=== PATIENT | female | born 1940 | race Caucasian/White ===

== ENCOUNTER 2022-01-20 12:48 | Emergency (ER) | payer MEDICARE, MEDICAID ==
[~2022-01-20] VITALS: Ht 167.6 cm; Wt 80.0 kg
[2022-01-20 13:31] LABS: BASOPHILS % (AUTO) 0.5 % (0-1); EOSINOPHILS # (AUTO) 0.1 X10'3 (0-0.9); EOSINOPHILS % (AUTO) 1.1 % (0-6); HEMATOCRIT 41.8 % (35.0-45.0); LYMPHOCYTES # (AUTO) 0.6 X10'3 (1.1-4.8); MEAN CORPUSCULAR HGB CONC 33.5 g/dL (33.0-36.5); MEAN CORPUSCULAR VOLUME 83.8 FL (78-98); MEAN PLATELET VOLUME 7.8 FL (7.4-10.4); MONOCYTES # (AUTO) 0.2 X10'3 (0-0.9); MONOCYTES % (AUTO) 2.9 % (2-12); NEUTROPHILS # (AUTO) 5.8 X10'3 (1.8-7.7); NEUTROPHILS % (AUTO) 86.5 % (42-75); PLATELET COUNT 139 X10'3 (140-440); RED BLOOD COUNT 4.99 X10'6 (4.20-5.60); RED CELL DISTRIBUTION WIDTH 14.6 % (11.5-14.5); WHITE BLOOD COUNT 6.8 X10'3 (4.5-11.0)
[2022-01-20 13:47] LABS: ALANINE AMINOTRANSFERASE 25 U/L (12-78); ALBUMIN 3.5 G/DL (3.4-5.0); ALBUMIN/GLOBULIN RATIO 1.1 (1.1-1.5); ALKALINE PHOSPHATASE 146 IU/L (46-116); ANION GAP 7 (8-16); ASPARTATE AMINO TRANSFERASE 18 U/L (10-37); BILIRUBIN,TOTAL 0.7 MG/DL (0.1-1.0); BLOOD UREA NITROGEN 23 MG/DL (7-18); BUN/CREATININE RATIO 20.5 (6.6-38.0); CALCIUM 9.2 MG/DL (8.5-10.1); CHLORIDE 104 MMOL/L (99-107); CREATININE 1.12 MG/DL (0.40-0.90); GLUCOSE 226 MG/DL (70-104); SODIUM 139 MMOL/L (135-145); TOTAL CARBON DIOXIDE 27.9 MMOL/L (24-32); TOTAL PROTEIN 6.6 G/DL (6.4-8.2); eGFR 47 ML/MIN
[2022-01-20 19:18] LABS: LIPASE 52 U/L (73-393)
--- NOTE | 2022-01-20 20:48 | NUR ---
GABRIEL HARO NOTIFIED OF BP 224/98. NO NEW ORDERS AT THIS TIME
--- NOTE | 2022-01-20 22:30 | NUR ---
PT TO CT
--- NOTE | 2022-01-20 22:40 | NUR ---
GABRIEL HARO AWARE OF ELEVATED BP AND AWARE THAT IV IS IN PLACE. NO NEW ORDERS AT THIS TIME
--- NOTE | 2022-01-20 22:47 | NUR ---
PT BACK FROM CT
--- NOTE | 2022-01-20 22:53 | NUR ---
GABRIEL HARO GAVE VERBAL ORDER FOR METOPROLOL 5MG IV ONCE
[2022-01-20] MEDS ORDERED: metoprolol tartrate 1mg/ml inj IV ONE ×2 (22:55→23:25)
[2022-01-21] MEDS ORDERED: hydrALAZINE 20mg/ml inj. IV ONE (00:05)
[2022-01-21] MEDS ORDERED: ondansetron/PF 4mg/2ml inj IV ONE (01:00)
--- NOTE | 2022-01-21 01:16 | NUR ---
PT HAD EPISODE OF AFIB WITH RVR OF 150. GABRIEL HARO AWARE
--- NOTE | 2022-01-21 01:42 | NUR ---
PT HAVING EPISODES OF VOMITING AND A FIB WITH RVR. HR OF 152 Addendum: 01/21/22 at 0142 by RBOLT GABRIEL HARO AWARE AND PUTTING IN ORDERS
[2022-01-21] MEDS ORDERED: diltiazem 5mg/ml 5ml inj. IV ONE (01:45)
[2022-01-21 02:44] LABS: CLARITY,URINE CLEAR (Clear); COLOR,URINE YELLOW (Yellow); GLUCOSE, URINE NEGATIVE (Neg); KETONES,URINE 15 mg/dl (Neg); LEUKOCYTE ESTERASE ,URINE NEGATIVE (Neg); NITRITES, URINE NEGATIVE (Neg); OCCULT BLOOD,URINE NEGATIVE (Neg); PROTEIN,URINE TRACE mg/dl (Neg); UROBILINOGEN,URINE 0.2 E.U/dL (0.2-1.0)
[2022-01-21 02:46] LABS: UA COLLECTION TYPE NON-SPECIFIED
[2022-01-21 02:53] LABS: WBC,URINE NONE SEEN /HPF (0-4)
[2022-01-21 02:54] LABS: BACTERIA,URINE FEW /HPF (Neg); RBC,URINE 0-2 /HPF (0-2); SQUAMOUS EPITHELIAL CELL,UR MODERATE /LPF (FEW)
--- NOTE | 2022-01-21 03:15 | NUR ---
Pt IS READY FOR DISCHARGE. CALLED DAUGHTER, JM, WHO REPORTED WILL BE HERE TO PICK PT UP IN APPROX 15 MINUTES.
[2022-01-21 03:41] VITALS: BP 141/83
--- NOTE | 2022-01-21 04:44 | NUR ---
THIS RN SPOKE TO DAUGHTER, JM, AFTER SHE DID NOT SHOW UP TO [employer] POURER PATIENT AN HOUR LATER PAST THE TIME SHE STATED. JM STATED SHE WAS TRYING TO GET A HOLD OF PATIENT'S MEDICAL DOCTOR FOR AN UNSPECIFIED REASON AND ASKED WHAT THE PATIENT'S BP WAS. RN TOLD THEM AND THEY AGREED TO COME TO PICK HER UP.
== END 2022-01-21 05:18 | disposition home or self-care (01) ==
LOC: ER 12:49
DX: R07.89 Other chest pain (principal); M54.9 Dorsalgia, unspecified; I10 Essential (primary) hypertension; I48.91 Unspecified atrial fibrillation; R10.13 Epigastric pain; K80.20 Calculus of gallbladder without cholecystitis without obstruction; Z88.5 Allergy status to narcotic agent; Z88.8 Allergy status to other drugs, medicaments and biological substances
CPT/HCPCS: 36415; 71045; 71275; 74174; 80053; 81001; 83690; 84484; 85025; 93005; 96374; 96375; 96376; 99285; J0360; J2405; J3490

== ENCOUNTER 2022-02-08 11:35 | Day surgery (SDC) | payer MEDICARE, MEDICAID ==
[2022-02-08] VITALS (13 sets, daily range): BP systolic 104–155; BP diastolic 40–71
[~2022-02-08] VITALS: Ht 157.5 cm; Wt 77.5 kg
[2022-02-08] MEDS ORDERED: fentaNYL/PF 50MCG/1 ML 2ML syringe IV ONE (12:05)
[2022-02-08] MEDS ORDERED: normal saline 1000ml 1,000 ML IV SCH (12:05)
[2022-02-08] MEDS ORDERED: MIDAZolam 1mg/ml 10ml vial IV ONE (12:05)
[2022-02-08] MEDS ORDERED: SOTA80TA73 PO (12:15)
[2022-02-08] MEDS ORDERED: WARF3TAB56 PO (12:15)
[2022-02-08] MEDS ORDERED: ATOR40TA PO (12:15)
[2022-02-08] MEDS ORDERED: CHOL100046 PO (12:15)
[2022-02-08] MEDS ORDERED: WARF-65 PO (12:15)
[2022-02-08] MEDS ORDERED: LISI20TA28 PO (12:15)
[2022-02-08 12:50] LABS: EOSINOPHILS # (AUTO) 0.1 X10'3 (0-0.9); EOSINOPHILS % (AUTO) 2.1 % (0-6); HEMATOCRIT 42.6 % (35.0-45.0); HEMOGLOBIN 14.2 g/dl (12.0-16.0); LYMPHOCYTES # (AUTO) 0.7 X10'3 (1.1-4.8); LYMPHOCYTES % (AUTO) 17.3 % (21-51); MEAN CORPUSCULAR HGB CONC 33.4 g/dL (33.0-36.5); MEAN CORPUSCULAR VOLUME 83.8 FL (78-98); MONOCYTES # (AUTO) 0.3 X10'3 (0-0.9); MONOCYTES % (AUTO) 6.1 % (2-12); NEUTROPHILS % (AUTO) 73.5 % (42-75); PLATELET COUNT 158 X10'3 (140-440); RED BLOOD COUNT 5.08 X10'6 (4.20-5.60); RED CELL DISTRIBUTION WIDTH 14.6 % (11.5-14.5); WHITE BLOOD COUNT 4.1 X10'3 (4.5-11.0)
[2022-02-08 12:58] LABS: ALBUMIN 3.6 G/DL (3.4-5.0); ANION GAP 10 (8-16); BLOOD UREA NITROGEN 20 MG/DL (7-18); BUN/CREATININE RATIO 16.9 (6.6-38.0); CALCIUM 9.8 MG/DL (8.5-10.1); CHLORIDE 107 MMOL/L (99-107); CREATININE 1.18 MG/DL (0.40-0.90); GLUCOSE 142 MG/DL (70-104); POTASSIUM 3.9 MMOL/L (3.5-5.1); SODIUM 145 MMOL/L (135-145); TOTAL CARBON DIOXIDE 28.3 MMOL/L (24-32); eGFR 44 ML/MIN
[2022-02-08 13:03] LABS: APTT 39 SECONDS (22-32)
== END 2022-02-08 16:20 | disposition home or self-care (01) ==
LOC: SSTAY O 11:35
PROVIDERS: ATTEND Student in an Organized Health Care Education/Training Program
DX: I48.91 Unspecified atrial fibrillation (principal)
CPT/HCPCS: 36415; 80048; 85025; 85610; 85730; 92960; 93005; J2250; J3010; J7030; A4620